=== PATIENT | female | born 1960 | race Hispanic/Latino ===

== ENCOUNTER 2020-06-27 15:49 | Emergency (ER) | payer OTHER ==
[2020-06-27 17:01] LABS: APPEARANCE,URINE Clear (CLEAR); BILIRUBIN,URINE Negative (NEGATIVE); COLOR,URINE Yellow (YELLOW); GLUCOSE, URINE (UA) Negative (NEGATIVE); KETONES,URINE Trace mg/dL (NEGATIVE); LEUKOCYTE ESTERASE ,URINE Trace (NEGATIVE); NITRATE,URINE Negative (NEGATIVE); OCCULT BLOOD,URINE Nonhemolyzed Trace (NEGATIVE); PROTEIN,URINE Negative (NEGATIVE)
[2020-06-27] MEDS ORDERED: ONDANSETRON HCL 4 MG/2 ML VIAL ONE (17:33)
[2020-06-27] MEDS ORDERED: HYDROMORPHONE HCL 0.5 MG/0.5 ML ML ONE (17:33)
[2020-06-27 17:36] LABS: BACTERIA,URINE Rare /HPF (None Seen); RBC,URINE 0-1 /HPF (0-1); WBC,URINE 0-1 /HPF (0-1)
[2020-06-27 17:55] LABS: BASOPHILS % (AUTO) 0.5 % (0.0-5.0); EOSINOPHILS % (AUTO) 0.9 % (0.0-8.0); HEMATOCRIT 38.6 % (36-48); LYMPHOCYTES % (AUTO) 32.5 % (21.0-51.0); MEAN CORPUSCULAR HEMOGLOBIN 31.3 pg (27.0-33.0); MEAN CORPUSCULAR HGB CONC 33.9 g/dL (32.0-36.0); MEAN CORPUSCULAR VOLUME 92.3 fL (79-99); MONOCYTES % (AUTO) 6.2 % (3.0-13.0); NEUTROPHILS % (AUTO) 59.2 % (40.0-77.0); PLATELET COUNT (AUTO) 235 K/uL (130-400); RED BLOOD CELL COUNT(AUTO) 4.18 MIL/uL (4.00-5.50); RED CELL DISTRIBUTION WIDTH 12.6 % (11.0-15.5); WHITE BLOOD COUNT (AUTO) 7.6 K/uL (4.8-10.8)
[2020-06-27 18:13] LABS: CREATININE 0.9 mg/dL (0.5-1.5); POTASSIUM 3.4 mmol/L (3.5-5.1)
[2020-06-27 18:17] LABS: ALBUMIN 4.2 g/dL (3.5-5.0); BILIRUBIN,TOTAL 0.3 mg/dL (0.2-1.0); TOTAL PROTEIN, SERUM 7.6 g/dL (6.0-8.3)
[2020-06-27] MEDS ORDERED: IOHEXOL-350 75 ML VIAL IV ONE (18:23)
== END 2020-06-27 19:22 | disposition home or self-care (01) ==
LOC: EDH 15:49
DX: R10.813 Right lower quadrant abdominal tenderness (principal); R10.31 Right lower quadrant pain; I10 Essential (primary) hypertension; Z88.2 Allergy status to sulfonamides
CPT/HCPCS: 36415; 74177; 76856; 80053; 81001; 82150; 83690; 85025; 96361; 96374; 96375; 99285; J1170; J2405; Q9967

== ENCOUNTER 2023-06-10 17:46 | Emergency (ER) | payer BC, OTHER ==
[~2023-06-10] VITALS: Ht 137.2 cm; Wt 58.5 kg
[2023-06-10] MEDS: KETOROLAC 60 MG VIAL (30MG/ML) IM ONE (18:28)
[2023-06-10] MEDS ORDERED: KETO10TA2 PO (19:07)
[2023-06-10 19:30] VITALS: BP 150/76; PULSE 101; RESP 18; O2SAT 99
== END 2023-06-10 19:29 | disposition home or self-care (01) ==
LOC: EDH 17:46
DX: G89.29 Other chronic pain (principal); M25.562 Pain in left knee; E11.9 Type 2 diabetes mellitus without complications; I10 Essential (primary) hypertension; Z88.2 Allergy status to sulfonamides; Z96.641 Presence of right artificial hip joint
CPT/HCPCS: 99284; 73562; 96372; J1885

== ENCOUNTER 2024-07-17 15:11 | Emergency (ER) | payer BC ==
[~2024-07-17] VITALS: Ht 149.9 cm; Wt 57.2 kg
[~2024-07-17 15:11] MED LIST: KETO10TA2 PO
--- NOTE | 2024-07-17 16:01 | HMCIMG ---
Exam Type: FOOT COMP 3+VWS RT Clinical Information: pain Comparison: None Findings: There is osteopenia. The examination is otherwise unremarkable. No fractures or dislocations are seen. No radiopaque foreign bodies are noted. Soft tissues are preserved. IMPRESSION: Osteopenia. Otherwise normal exam.
[2024-07-17 16:42] VITALS: BP 132/75; PULSE 100; RESP 16; TEMP 98.2; O2SAT 98
--- NOTE | 2024-07-17 16:44 | ERN ---
General Chief Complaint: Toe Pain/Injury Stated Complaint: RIGHT FOOT PAIN/ AND LEFT PINKY TOE Time Seen by MD: 15:21 Time Seen by Midlevel: 15:21 Source: patient History of Present Illness Initial Comments 64-year-old female who presents to the emergency department due to right foot/toe pain. She states the pain is at the 5th toe and bottom of the foot. Patient reports she has previously been seen by PCP and had injections to the foot but has continued with pain. Patient able to ambulate denies any injuries, trauma, or further associated symptoms. PMHx DM, HTN Allergies: Coded Allergies: Sulfa (Sulfonamide Antibiotics) (Unverified Allergy, Unknown, 06/10/23) cephalexin (Unverified Allergy, Unknown, 07/17/24) Home Meds Active Scripts Ketorolac Tromethamine (Ketorolac Tromethamine) 10 Mg Tablet, 10 MG PO Q6HPRN for PAIN, #30 TAB Prov:MARYSOL BOTELLO [employer] 06/10/23 Past Medical History Past Medical History: Diabetes-Type II, High Cholesterol, Hypertension Past Surgical History: Other Surgical History Other: JOVANNI HIP REPLACEMENT Female( History) History: Not Applicable ROS Dictation Constitutional: Negative for fever,chills, and weight loss Eyes: Negative for injury, pain,redness, and discharge ENT: Negative for injury,pain or swelling Cardiovascular: Negative for chest pain, palpitations, and edema Respiratory: Negative for shortness of breath, cough, and wheezing, Abdomen/GI: Negative for abdominal pain, nausea, vomiting, diarrhea, and constipation Back: Negative for injury and pain : Negative for painful urination, bleeding or discharge MS/Extremity: Positive for right foot/toe pain Negative for injury and deformity Skin: Negative for rash, and discoloration Neuro: Negative for headache, weakness, numbness, tingling, and seizure Psych: Negative for suicide ideation, homicidal ideation, and hallucinations Physical Exam Physical Exam Dictation General: awake, alert, no acute distress Head/Face: Normocephalic, atraumatic Eyes: PERRL, EOMI, normal conjunctiva ENT: oral cavity clear, oral mucosa moist Neck: Supple, normal range of motion Cardiovascular: RRR, normal S1/S2 Respiratory: CTAB, no respiratory distress Skin: Warm, dry, normal turgor, no rash MS/Extremity: Pulses equal, no cyanosis, neurovascular intact, FROM, no tend erness, no deformities Neuro: COAx4, GCS 15, strength 5/5, CN 2-12 intact, normal cerebellar exam, normal gait Psych: Normal behavior, mood, and affect normal Results EKG/XRAY/US/CT/MRI X-RAY Comment REASON: pain ORDERING PHYSICIAN: KEY CHRISTINE PROCEDURE: FT 3VW RT - FOOT COMP 3+VWS RT Exam Type: FOOT COMP 3+VWS RT Clinical Information: pain Comparison: None Findings: There is osteopenia. The examination is otherwise unremarkable. No fractures or dislocations are seen. No radiopaque foreign bodies are noted. Soft tissues are preserved. IMPRESSION: Osteopenia. Otherwise normal exam. DICTATED BY: ADONIS LAWRENCE MD DATE: 07/17/241558 [facility] MDM: Differential diagnosis: Fracture, arthritis, bone spur Rationale: 64-year-old female who presents to the emergency department due to right foot/toe pain. She states the pain is at the 5th toe and bottom of the foot. Patient reports she has previously been seen by PCP and had injections to the foot but has continued with pain. Patient able to ambulate denies any injuries, trauma, or further associated symptoms. PMHx DM, HTN X-ray of the right foot obtained indicating osteopenia, otherwise no acute abnormalities. Patient was administered ketorolac injection in the ED. Patient was educated on findings and diagnosis. Advised to follow up with PCP. Return to the emergency department if any worsening symptoms. Patient verbalized understanding. Patient stable for discharge. There are no social concerns with this patient. I independently interpreted the test that were performed, results were reviewed by me and considered findings on radiology if ordered. Medical management and examination interpretation discussions were had by me with other qualified healthcare professionals as indicated for the patient's care. ED Course Orders Procedure Category Date Status Time Foot Comp 3+Vws Rt RAD 07/17/24 Resulted 15:28 Ketorolac PHA 07/17/24 Complete Tromethamine 15mg/Ml 15:30 Current Medications Medications (Trade) Dose Ordered Sig/Marisa Route PRN Reason Start Time Stop Time Status Last Admin Dose Admin Ketorolac Tromethamine (toRADol) 15 mg ONCE ONCE IM 07/17/24 15:30 07/17/24 15:31 DC 07/17/24 17:04 Vital Signs Date Time Temp Pulse Resp B/P (MAP) Pulse Ox O2 Delivery O2 Flow Rate FiO2 07/17/24 16:42 98.2 100 16 132/75 98 Room Air* 0 21 07/17/24 15:18 98.2 100 16 132/75 98 Room Air 0 DX & DISP Disposition: Discharge Departure Impression: Primary Impression: Foot pain, right Additional Impression: Pain of fifth toe Condition: Stable Additional Instructions: Discharge home. Rest. Follow up with primary care DrDavid in 24 hours. Return to the ER for any acute changes or worsening symptoms. If any medications were prescribed take as directed. Okay to continue home medications unless otherwise discussed during your visit in the emergency room today. Patient was also advised to follow-up with primary care physician in 1 to 2 days for continued monitoring. Referrals: JOSELIN MERINO MD (PCP) I performed the substantive portion of the visit. I have reviewed and personally made and approve the management plan that is documented in the notes by myself or the NINOSKA. I acknowledge full responsibility for the patient's management plan. KEY CHRISTINE July 17, 2024 16:44
[2024-07-17] MEDS: ketOROlac 15MG/ML VIAL (15MG/ML) IM ONE (17:04)
== END 2024-07-17 17:10 | disposition home or self-care (01) ==
LOC: EEVIPCON 15:11 → EDH 15:11
DX: M79.671 Pain in right foot (principal); M79.675 Pain in left toe(s); E11.9 Type 2 diabetes mellitus without complications; E78.00 Pure hypercholesterolemia, unspecified; I10 Essential (primary) hypertension; Z88.1 Allergy status to other antibiotic agents; Z88.2 Allergy status to sulfonamides
CPT/HCPCS: 99284; 73630; 96372; J1885